=== PATIENT | male | born 2005 | race Caucasian/White ===

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

== ENCOUNTER 2023-05-30 15:33 | Emergency (ER) | payer SELFPAY ==
[~2023-05-30] VITALS: Ht 165.1 cm; Wt 72.6 kg
[~2023-05-30 15:33] MED LIST: AMOX500C25 PO
[2023-05-30 16:16] VITALS: BP 117/69; PULSE 83; RESP 18; TEMP 98; O2SAT 98
[2023-05-30] MEDS ORDERED: OXYM15SP72 NS (16:48)
[2023-05-30 18:33] LABS: FLU A ANTIGEN negative (NEGATIVE); FLU B ANTIGEN NEGATIVE (NEGATIVE)
== END 2023-05-30 16:35 | disposition home or self-care (01) ==
LOC: MED 15:33
DX: J06.9 Acute upper respiratory infection, unspecified (principal); Z20.822 Contact with and (suspected) exposure to COVID-19; R04.0 Epistaxis; Z79.899 Other long term (current) drug therapy
CPT/HCPCS: 99283